=== PATIENT | female | born 1990 | race Two or more races ===

== ENCOUNTER 2025-01-15 16:33 | Inpatient (IN) | payer MEDICAID, OTHER ==
[~2025-01-15] VITALS: Ht 165.1 cm; Wt 97.9 kg
[2025-01-15 17:00] VITALS: PULSE 113; RESP 20; O2SAT 96
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
[2025-01-15 17:22] LABS: Basophils # (auto) 0.1 10 ^3/uL (0-0.2); Basophils % (auto) 0.4 % (0.0-2.0); Eosinophils # (auto) 0.2 10 ^3/uL (0-0.8); Eosinophils % (auto) 1.2 % (0.0-7.0); Hemoglobin 12.6 g/dL (12.2-16.2); Lymphocytes # (auto) 1.5 10 ^3/uL (0.4-5.4); Lymphocytes % (auto) 11.1 % (10.0-50.0); Mean Corpuscular Hemoglobin 26.5 pg (28.0-32.0); Mean Corpuscular Hgb Conc. 32.4 g/dL (32.0-36.0); Mean Corpuscular Volume 81.8 fL (80.0-100.0); Monocytes # (auto) 0.8 10 ^3/uL (0-1.3); Neutrophils # (auto) 10.7 10 ^3/uL (1.6-8.6); Neutrophils % (auto) 81.3 % (37.0-80.0); Platelet Count (auto) 376 10^3/uL (140-450); Red Blood Cells 4.76 10^6/uL (4.0-5.20); Red Cell Distribution Width 14.4 % (11.8-14.3); White Blood Cell 13.2 10^3/uL (4.4-10.8)
[2025-01-15 17:30] LABS: Chloride 101 mmol/L (98-107); Potassium 3.6 mmol/L (3.5-5.1)
[2025-01-15 17:31] LABS: Anion Gap 8 (5-15); Calcium 9.1 mg/dL (8.7-10.4); Carbon Dioxide 25 mmol/L (20-31)
[2025-01-15 17:34] LABS: Sodium 134 mmol/L (136-145)
[2025-01-15 17:36] LABS: BUN/Creatinine Ratio 14.1 (10.0-20.0); Blood Urea Nitrogen 9 mg/dL (9-23)
[2025-01-15 17:37] LABS: Glucose 185 mg/dL (74-106)
[2025-01-15] MEDS: SODIUM CHLORIDE 0.9% 2,000 ML IV ONE (17:37)
[2025-01-15] MEDS: HYDROcodone-ACET 5/325MG TAB PO ONE (17:38)
[2025-01-15] MEDS: PIPERACILLIN-TAZO 4.5GM 100 ML IV ONE (17:38)
[2025-01-15] MEDS: KETOROLAC TROMETH 30 MG/ML 1ML VIAL IV ONE (17:38)
--- NOTE | 2025-01-15 18:26 | DVH ---
Exam: CT CT AB PEL WO CON-NO ORAL OR IV History: R abd non-healing wound with d/c r/o abscess Comparison Study: None TECHNIQUE: Multidetector CT of the abdomen was performed from lung bases to pubic symphysis. Imaging was performed without IV contrast. Axial, coronal and sagittal multiplanar reformats were obtained fr om the axial data set by the technologist. Radiation Dose Information: CT Dose: CTDI volume is 22.79 mGy. Dose-length product is 1265.87 mGy*cm. FINDINGS: Evaluation of solid organs is limited due to lack of intravenous contrast use. Findings: Lung Bases: No acute or significant lung base finding. Normal heart size. No pleural or pericardial effusion. Liver: The liver is normal in size. No focal lesions. Gallbladder and Biliary Tree: Unremarkable Spleen: Unremarkable Pancreas: The pancreas is grossly normal in appearance. Adrenal Glands: Unremarkable Kidneys: Kidneys are grossly normal without calculi or hydronephrosis. Bladder: Grossly unremarkable for degree of distention. Bowel: The stomach is grossly normal in appearance. Small bowel and colon are normal in caliber and d istribution. The appendix is not visualized; however, no secondary findings of acute appendicitis id entified. Ascites: Absent Lymphadenopathy: No mesenteric, retroperitoneal or periportal lymphadenopathy. Abdominal Wall and Mesentery: Unremarkable. Vasculature: The visualized abdominal aorta is normal in size and caliber. Evaluation of abdominal a nd pelvic vessels is limited due to lack of intravenous contrast. Pelvic Organs: Unremarkable Musculoskeletal: No aggressive focal bony lesions, acute fractures or dislocation. Soft tissues: Soft tissue mass above the right iliac crest in the subcutaneous tissues is compressing the peritoneal cavity measures 5.9 x 3.9 cm. Spiculated margins but no area of decreased tissue dens ity centrally this suggest phlegmon and not a mature abscess at this time. Questionable nondisplaced fracture through the tip of the iliac bone. Can not exclude involvement of the iliac bone with infect ion. IMPRESSION: 1. Cutaneous phlegmon on the right above the right iliac crest. There is no central low tissue densit y to suggest necrotic abscess. Tissue density of this collection is a proximally 35-36 Hounsfield uni ts. 2. Recommend follow-up. Radiation optimization: All CT scans at this facility use at least one of these dose optimization toshia hniques: automated exposure control mA and/or kV adjustment per patient size (includes targeted exam s where dose is matched to clinical indication) or iterative reconstruction.
[2025-01-15] MEDS: VANCOMYCIN 1GM/200ML PM 200 ML IV ONE ×2 (18:40→21:06)
[2025-01-15 19:10] VITALS: PULSE 95; RESP 13; O2SAT 98
[2025-01-15 19:45] VITALS: PULSE 76; RESP 20; O2SAT 100
[2025-01-15] MEDS ORDERED: VANCOMYCIN PER PHARMACY 0 MG IV SCH (19:45)
[2025-01-15] MEDS ORDERED: ACETAMINOPHEN 325 MG TAB PO PRN (19:45)
[2025-01-15] MEDS ORDERED: ONDANSETRON HCL 4 MG/2 ML VIAL IV PRN (19:45)
[2025-01-15] MEDS ORDERED: HYDROcodone-ACET 5/325MG TAB PO PRN (19:45)
[2025-01-15 21:02] LABS: Anion Gap 9 (5-15); Carbon Dioxide 27 mmol/L (20-31); Chloride 103 mmol/L (98-107); Potassium 2.9 mmol/L (3.5-5.1); Sodium 139 mmol/L (136-145)
[2025-01-15 21:08] LABS: BUN/Creatinine Ratio 12.7 (10.0-20.0); Blood Urea Nitrogen 8 mg/dL (9-23); Glucose 122 mg/dL (74-106)
[2025-01-15 22:00] VITALS: BP 104/50; PULSE 76; RESP 20; TEMP 98; O2SAT 100
[2025-01-15] MEDS: FAMOTIDINE 20 MG TAB PO SCH (22:23)
[2025-01-15] MEDS: PIPERACILLIN-TAZOB 3.375GM 100 ML IV SCH (22:23)
[2025-01-16] VITALS (7 sets, daily range): BP systolic 105–133; BP diastolic 50–71; PULSE 75–98; RESP 17–21; TEMP 97.9–98.5; O2SAT 95–98
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
[2025-01-16 07:42] LABS: Basophils # (auto) 0.1 10 ^3/uL (0-0.2); Basophils % (auto) 0.9 % (0.0-2.0); Eosinophils # (auto) 0.2 10 ^3/uL (0-0.8); Eosinophils % (auto) 3.3 % (0.0-7.0); Hematocrit 35.2 % (36.0-46.0); Hemoglobin 11.6 g/dL (12.2-16.2); Lymphocytes # (auto) 1.4 10 ^3/uL (0.4-5.4); Lymphocytes % (auto) 20.1 % (10.0-50.0); Mean Corpuscular Hemoglobin 26.8 pg (28.0-32.0); Mean Corpuscular Volume 81.2 fL (80.0-100.0); Monocytes # (auto) 0.7 10 ^3/uL (0-1.3); Monocytes % (auto) 9.1 % (0.0-12.0); Neutrophils # (auto) 4.8 10 ^3/uL (1.6-8.6); Neutrophils % (auto) 66.6 % (37.0-80.0); Nucleated Red Blood Cells % 0.1 %; Platelet Count (auto) 342 10^3/uL (140-450); Red Blood Cells 4.34 10^6/uL (4.0-5.20); Red Cell Distribution Width 14.7 % (11.8-14.3); White Blood Cell 7.2 10^3/uL (4.4-10.8)
[2025-01-16] MEDS: ENOXAPARIN SOD 40 MG/0.4 ML SYRINGE SC SCH (10:00)
[2025-01-16] MEDS: POTASSIUM CHLORIDE 20 MEQ, LIDOCAINE 1% (LOCAL ANESTH.) 2 ML in SODIUM CHL 0.9% 100 ML IV ONE (12:00)
[2025-01-16] MEDS: MAGNESIUM SULFATE 1GM/100ML 100 ML IV SCH (13:00)
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
[2025-01-16 16:00] LABS: Chloride 107 mmol/L (98-107); Sodium 139 mmol/L (136-145)
[2025-01-16 16:01] LABS: Anion Gap 8 (5-15); Carbon Dioxide 24 mmol/L (20-31)
[2025-01-16 16:06] LABS: BUN/Creatinine Ratio 12.1 (10.0-20.0); Glucose 101 mg/dL (74-106)
[2025-01-16 16:09] LABS: Blood Urea Nitrogen 7 mg/dL (9-23); Potassium 3.3 mmol/L (3.5-5.1)
[2025-01-16 16:34] LABS: Urine Bacteria FEW /hpf (None Seen); Urine Blood Negative /uL (Negative); Urine Clarity Turbid (Clear); Urine Color Yellow (Yellow); Urine Mucus FEW (None Seen); Urine Protein, UAD 1+ (Negative); Urine Specific Gravity 1.047 (1.001-1.035); Urine Squamous Epithelial Cell MOD /hpf (<5); Urine Urobilinogen Normal (Negative); Urine WBC 9 /HPF (0-5)
[2025-01-16] MEDS: VANCOMYCIN 750mg/150ml 150 ML IV SCH (20:01)
[2025-01-16] MEDS: POTASSIUM CHL 10 Meq TABLET PO SCH (21:53)
[2025-01-17 01:00] VITALS: BP 122/73; PULSE 81; RESP 20; TEMP 97.8; O2SAT 97
[2025-01-17 05:00] VITALS: BP 109/65; PULSE 84; RESP 20; TEMP 98.3; O2SAT 99
[2025-01-17 07:32] LABS: Basophils # (auto) 0.1 10 ^3/uL (0-0.2); Basophils % (auto) 0.9 % (0.0-2.0); Eosinophils # (auto) 0.3 10 ^3/uL (0-0.8); Eosinophils % (auto) 4.8 % (0.0-7.0); Hematocrit 34.7 % (36.0-46.0); Hemoglobin 11.5 g/dL (12.2-16.2); Lymphocytes # (auto) 1.8 10 ^3/uL (0.4-5.4); Lymphocytes % (auto) 30.9 % (10.0-50.0); Mean Corpuscular Hemoglobin 26.9 pg (28.0-32.0); Mean Corpuscular Hgb Conc. 33.3 g/dL (32.0-36.0); Mean Corpuscular Volume 80.7 fL (80.0-100.0); Monocytes # (auto) 0.5 10 ^3/uL (0-1.3); Monocytes % (auto) 9.3 % (0.0-12.0); Neutrophils # (auto) 3.1 10 ^3/uL (1.6-8.6); Neutrophils % (auto) 54.1 % (37.0-80.0); Nucleated Red Blood Cells % 0.1 %; Platelet Count (auto) 387 10^3/uL (140-450); Red Cell Distribution Width 14.4 % (11.8-14.3); White Blood Cell 5.7 10^3/uL (4.4-10.8)
[2025-01-17 09:00] VITALS: BP 111/81; PULSE 93; RESP 17; TEMP 97.7; O2SAT 99
[2025-01-17 09:13] LABS: Anion Gap 10 (5-15); Calcium 9.1 mg/dL (8.7-10.4); Carbon Dioxide 23 mmol/L (20-31); Chloride 108 mmol/L (98-107); Potassium 3.9 mmol/L (3.5-5.1); Sodium 141 mmol/L (136-145)
[2025-01-17 09:19] LABS: BUN/Creatinine Ratio 10.3 (10.0-20.0); Glucose 104 mg/dL (74-106)
[2025-01-17 09:21] LABS: Blood Urea Nitrogen 6 mg/dL (9-23)
[2025-01-17 11:24] LABS: INR 1.03 (0.9-1.15); Partial Thromboplastin Time 31.1 SEC (24.5-34.5); Prothrombin Time 10.9 sec (9.3-11.8)
[2025-01-17 13:00] VITALS: BP 115/71; PULSE 75; RESP 18; TEMP 97.8; O2SAT 100
--- NOTE | 2025-01-17 13:59 | DVH ---
CHEST RADIOGRAPH Indication: PRE-OP, pain Technique: Single frontal view of the chest was obtained Comparison: None FINDINGS: Lines and Tubes: None Lungs: No focal consolidation. Pleura: No effusion. No pneumothorax. Cardiomediastinal contours: Unremarkable Bones: No acute osseous abnormality. IMPRESSION: No acute cardiopulmonary disease.
[2025-01-17] MEDS ORDERED: ceFAZolin 1GM/50ML 100 ML IV ONE (14:51)
--- NOTE | 2025-01-17 17:03 | DVHPN2 ---
Progress Note - Dictate Date Seen: January 17, 2025 Medical Necessity Reason Pt with a Central, PICC or Fol: No Subjective She is evaluated by general surgeon recommending to look at her iliac crest wound to see if anything needs to be debrided therefore she is being taken to the OR today. vital signs Vital Sign Date Time Temp Pulse Resp B/P (MAP) Pulse Ox O2 Delivery O2 Flow Rate FiO2 01/17/25 13:00 97.8 75 18 115/71 (86) 100 97.8 01/17/25 08:19 Room Air* 0 21 Total Intake and Output 01/16/25 01/16/25 01/17/25 15:00 23:00 07:00 Intake Total 100 ml 1010 ml 650 ml Balance 100 ml 1010 ml 650 ml medications Current Medications Medications Dose Ordered Sig/Bernardino Route Start Time Stop Time Status Last Admin Dose Admin Vancomycin HCl 0 ml @ 0 mls/hr UD IV 01/15/25 19:45 Piperacillin Sod/ Tazobactam Sod 100 ml @ 100 mls/hr Q8HR IV 01/15/25 22:00 01/17/25 05:32 100 MLS/HR Ondansetron HCl 4 mg Q6HPRN PRN IV 01/15/25 19:45 Famotidine 20 mg BID PO 01/15/25 22:00 01/16/25 21:53 20 MG Acetaminophen/ Hydrocodone Bitart 1 tab Q6HPRN PRN PO 01/15/25 19:45 Acetaminophen 650 mg Q6HPRN PRN PO 01/15/25 19:45 Potassium Chloride 10 meq BID PO 01/16/25 22:00 01/16/25 21:53 10 MEQ Vancomycin HCl 200 ml @ 200 mls/hr Q10H IV 01/17/25 22:00 objective Comfortable. HEENT neck supple no JVD. Heart regular rate and rhythm. Lungs without rales wheezes. Abdomen soft positive bowel sounds. Extremities no edema laboratory and microbiology Laboratory Tests 01/17/25 07:06 Test 01/17/25 07:06 Range/Units Serum Glucose 104 74-106 mg/dL Assessment/Plan Continue current antibiotics and wound care. Continue rest of supportive care and treatment. Further clinical management per postop recovery and recommendations from the surgeon. Problems(with codes): (1) Surgical wound infection (2) Abdominal wall abscess at site of surgical wound (3) Leukocytosis Plan discussed with: RAMONA Vazquez MD January 17, 2025 17:03
--- NOTE | 2025-01-18 21:08 | DVHINCON2 ---
Date of service: January 16, 2025 Family History: Patient reports no known family medical history. Allergies: Coded Allergies: NO KNOWN ALLERGIES (Unverified , 01/15/25) Home Meds No Active Prescriptions or Reported Meds Current Medications Current Medications Medications (Trade) Dose Ordered Sig/Bernardino Route PRN Reason Start Time Stop Time Status Last Admin Vancomycin HCl 200 ml @ 200 mls/hr Q10H IV 01/17/25 22:00 01/17/25 18:36 DC Vital Signs Vital Signs Date Time Temp Pulse Resp B/P (MAP) Pulse Ox O2 Delivery O2 Flow Rate FiO2 01/17/25 13:00 97.8 75 18 115/71 (86) 100 97.8 01/17/25 08:19 Room Air* 0 21 Labs/Diagnostic Data Labs Test 01/17/25 10:59 01/17/25 07:06 01/16/25 16:00 01/16/25 06:59 Range/Units Prothrombin Time 10.9 9.3-11.8 sec Prothrombin Time INR 1.03 0.9-1.15 Activated Partial Thromboplast Time 31.1 24.5-34.5 SEC Vancomycin Level Trough 9.4 5-10 ug/mL White Blood Count 5.7 4.4-10.8 10^3/uL Red Blood Count 4.30 4.0-5.20 10^6/uL Hemoglobin 11.5 L 12.2-16.2 g/dL Hematocrit 34.7 L 36.0-46.0 % Mean Corpuscular Volume 80.7 80.0-100.0 fL Mean Corpuscular Hemoglobin 26.9 L 28.0-32.0 pg Mean Corpuscular Hemoglobin Concent 33.3 32.0-36.0 g/dL Red Cell Distribution Width 14.4 H 11.8-14.3 % Platelet Count 387 140-450 10^3/uL Mean Platelet Volume 7.8 6.9-10.8 fL Neutrophils (%) (Auto) 54.1 37.0-80.0 % Lymphocytes (%) (Auto) 30.9 10.0-50.0 % Monocytes (%) (Auto) 9.3 0.0-12.0 % Eosinophils (%) (Auto) 4.8 0.0-7.0 % Basophils (%) (Auto) 0.9 0.0-2.0 % Neutrophils # (Auto) 3.1 1.6-8.6 10 ^3/uL Lymphocytes # (Auto) 1.8 0.4-5.4 10 ^3/uL Monocytes # (Auto) 0.5 0-1.3 10 ^3/uL Eosinophils # (Auto) 0.3 0-0.8 10 ^3/uL Basophils # (Auto) 0.1 0-0.2 10 ^3/uL Nucleated Red Blood Cells 0.1 % Sodium Level 141 136-145 mmol/L Potassium Level 3.9 3.5-5.1 mmol/L Chloride Level 108 H 98-107 mmol/L Carbon Dioxide Level 23 20-31 mmol/L Anion Gap 10 5-15 Blood Urea Nitrogen 6 L 9-23 mg/dL Creatinine 0.58 0.550-1.02 mg/dL Glomerular Filtration Rate Calc 121 >90 mL/min BUN/Creatinine Ratio 10.3 10.0-20.0 Serum Glucose 104 74-106 mg/dL Calcium Level 9.1 8.7-10.4 mg/dL Urine Color Yellow Yellow Urine Clarity Turbid H Clear Urine pH 6.0 5.0-9.0 Urine Specific [place] 1.047 H 1.001-1.035 Urine Protein 1+ H Negative Urine Ketones Negative Negative Urine Blood Negative Negative /uL Urine Nitrite Negative Negative Urine Bilirubin Negative Negative Urine Urobilinogen Normal Negative mg/dL Urine Leukocyte Esterase Negative Negative /uL Urine RBC 3 0 - 4 /hpf Urine Microscopic WBC 9 H 0-5 /HPF Urine Squamous Epithelial Cells Mod <5 /hpf Urine Calcium Oxalate Crystals Few None Seen Urine Bacteria Few H None Seen /hpf Urine Mucus Few None Seen Urine Glucose Normal Normal mg/dL Urine Test Negative Negative Hemoglobin A1c 5.4 <5.7 % A1C Lactic Acid Level 0.8 0.4-2.0 mmol/L Magnesium Level 2.0 1.6-2.6 mg/dL Microbiology Date/Time Source Procedure Growth Status 01/15/25 17:55 Abdomen Gram Stain - Final Resulted 01/15/25 17:55 Wound Culture - Preliminary Streptococcus Group A Resulted 01/15/25 17:05 Blood Blood Culture - Preliminary NO GROWTH AFTER 72 HOURS OF INCUBATION. Resulted NATHALIE SHEETS MD January 18, 2025 21:08
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
--- NOTE | 2025-01-19 22:16 | DVHPN2 ---
Consult Progress Note Objective vital signs Vital Sign Date Time Temp Pulse Resp B/P (MAP) Pulse Ox O2 Delivery O2 Flow Rate FiO2 01/17/25 13:00 97.8 75 18 115/71 (86) 100 97.8 01/17/25 08:19 Room Air* 0 21 laboratory and microbiology Laboratory Tests 01/17/25 07:06 Test 01/17/25 07:06 Range/Units Serum Glucose 104 74-106 mg/dL NATHALIE SHEETS MD January 19, 2025 22:16
[2025-01-20] MEDS ORDERED: CEFD300C2 PO (14:07)
== END 2025-01-17 17:23 | disposition left against medical advice (07) | DRG 721 ==
LOC: ER 16:33 → OVERFLOW 19:38 → WEST WING 21:53
PROVIDERS: ADMIT Nurse Practitioner Family; ATTEND Nurse Practitioner Family
DX: T81.41XA Infection following a procedure, superficial incisional surgical site, initial encounter (principal); L02.211 Cutaneous abscess of abdominal wall; T81.30XA Disruption of wound, unspecified, initial encounter; R73.9 Hyperglycemia, unspecified; L02.214 Cutaneous abscess of groin; E66.9 Obesity, unspecified; Z53.29 Procedure and treatment not carried out because of patient's decision for other reasons; Y83.8 Other surgical procedures as the cause of abnormal reaction of the patient, or of later complication, without mention of misadventure at the time of the procedure; Z90.49 Acquired absence of other specified parts of digestive tract; Z87.891 Personal history of nicotine dependence; Y92.89 Other specified places as the place of occurrence of the external cause; Z68.35 Body mass index [BMI] 35.0-35.9, adult
CPT/HCPCS: 36415; 71045; 74176; 80048; 80202; 81001; 81025; 83036; 83605; 83735; 85025; 85610; 85730; 87040; 87077; 87186; 87205; 96365; 96375; G0378; J1885; J2003; J2543